=== PATIENT | male | born 1955 ===

== ENCOUNTER → 2022-11-10 10:59 | Outpatient (BNVA) | payer MEDICARE, MEDICAID, SELFPAY | PROVIDERS: PCP Family Medicine Adult Medicine; Visit Provider Family Medicine Adult Medicine | DX: Z00.00 Encounter for general adult medical examination without abnormal findings (principal); H40.9 Unspecified glaucoma; Z86.79 Personal history of other diseases of the circulatory system; E78.5 Hyperlipidemia, unspecified | CPT/HCPCS: 80053; 80061; 84443; 85025 ==

== ENCOUNTER → 2022-12-30 10:02 | Outpatient (BNVA) | payer MEDICARE, MEDICAID, SELFPAY | PROVIDERS: PCP Family Medicine Adult Medicine; Visit Provider Family Medicine Adult Medicine | DX: R73.01 Impaired fasting glucose (principal); M25.569 Pain in unspecified knee; G89.29 Other chronic pain; M54.16 Radiculopathy, lumbar region; F44.89 Other dissociative and conversion disorders; R41.3 Other amnesia; H40.9 Unspecified glaucoma; E78.5 Hyperlipidemia, unspecified | CPT/HCPCS: 83036 ==

== ENCOUNTER → 2023-03-24 07:38 | Outpatient (BNVA) | payer MEDICARE, MEDICAID, SELFPAY | PROVIDERS: PCP Family Medicine Adult Medicine; Visit Provider Psychiatry & Neurology Neurology | DX: R41.3 Other amnesia (principal); E11.9 Type 2 diabetes mellitus without complications; Z79.84 Long term (current) use of oral hypoglycemic drugs; E78.5 Hyperlipidemia, unspecified; D69.6 Thrombocytopenia, unspecified; D70.9 Neutropenia, unspecified | CPT/HCPCS: 36415; 82306; 82607; 82746; 83735; 83921; 85025; 86140; 86160; 86162; 86235; 86255; 86376; 86431; 86780; 99204 ==

== ENCOUNTER 2023-04-13 13:07 | Outpatient (CLI) | payer MEDICARE, MEDICAID, SELFPAY ==
--- NOTE | 2023-04-13 13:15 | USCV_ITS ---
Nathan Simon Age: 67 Gender: M : 1955 Exam Date: 04/13/2023 15:20 Ordering Phys: Sergio Lofton MD Technologist: Cele Fofana [place] [facility] [place]: type II diabetes, Risk Factors: None Previous Vascular Surgery: None Right Brachial BP: / Left Brachial BP: / Right Left Velocity (cm/s) Spectral Plaque Velocity (cm/s) Spectral Plaque Syst/Diast Broadening Syst/Diast Broadening 66.20/ 11.60 Prox CCA 88.60 / 21.00 53.80/ 13.70 None Mid CCA 55.20 / 14.80 36.80/ 10.50 None Distal CCA 62.55 / 19.40 41.40/ 15.00 Prox ICA 50.60 / 18.40 50.00/ 18.40 Mid ICA 61.10 / 23.70 46.50/ 16.30 Distal ICA 78.60 / 24.80 71.60 ECA 77.70 0.75 ICA/CCA 0.89 Antegrade Vertebral 50.00/ 15.80 cm/s 61.50/ 13.70 cm/s Tri Subclavian Tri 62.90 129.5 0 FINDINGS No obvious plaque in carotids. CONCLUSIONS Right ICA stenosis <50%. Left ICA stenosis <50%. Intimal thickening in the common carotid arteries and internal carotid arteries bilaterally. Normal antegrade Doppler flow noted in the right vertebral artery. Normal antegrade Doppler flow noted in the left vertebral artery. Luis Alberto Corrigan MD (Electronically Signed) Final Date: 13 April 2023 16:41 S
--- NOTE | 2023-04-13 13:45 | USCV_ITS ---
Nathan Simon Age: 67 Gender: M : 1955 Exam Date: 04/13/2023 14:51 Ordering Phys: Sergio Lofton MD Technologist: Cele Fofana [place] [facility] [place]: type II diabetes BP: / HR: 74 Rhythm: Sinus Technical Quality: Good MEASUREMENTS (Male / Female) Normal Values 2D ECHO LV Diastolic Diameter PLAX 3.6 cm 4.2 - 5.9 / 3.9 - 5.3 cm LV Systolic Diameter PLAX 2.0 cm IVS Diastolic Thickness 1.6 cm 0.6 - 1.0 / 0.6 - 0.9 cm IVS Systolic Thickness 1.7 cm LVPW Diastolic Thickness 0.5 cm 0.6 - 1.0 / 0.6 - 0.9 cm LVPW Systolic Thickness 1.7 cm LVOT Diameter 2.0 cm LV Ejection Fraction 2D Teich 75.7 % LV Ejection Fraction MOD 2C 57.3 % LV Ejection Fraction 2C AL 57.7 % LA Diameter 2.9 cm LA Width 2.7 cm LA Height 4.0 cm RA Width 3.3 cm RA Height 3.8 cm Aorta at Sinotubular Diameter 2.5 cm IVC Diameter 1.6 cm M-MODE Aortic Annulus Diameter 2.5 cm LA Ao Ratio MM 1.3 MV E Point Septal Separation 0.5 cm DOPPLER AV Peak Velocity 109.0 cm/s LVOT Peak Velocity 114.0 cm/s AV Area Cont Eq vti 3.1 cm squared AV Area Cont Eq pk 3.3 cm squared MV Peak Velocity 87.0 cm/s MV Area PHT 2.9 cm squared Mitral E to A Ratio 0.8 MV E' Velocity 37.5 cm/s Mitral E to MV E' Ratio 9.7 Mitral E to LV E' Lateral Ratio 8.2 Mitral E to LV E' Septal Ratio 12.0 TR Peak Velocity 67.7 cm/s TR Peak Gradient 1.8 mmHg Right Atrial Pressure 5.0 mmHg Pulmonary Artery Systolic Pressu 6.8 mmHg PV Peak Velocity 98.0 cm/s RV Acceleration Time 0.1 s RV Ejection Time 0.3 s RV AcT/ET 0.3 FINDINGS Left Ventricle Normal left ventricular size and systolic function, EF 65 %. No regional wall motion abnormalities. Grade I/IV diastolic dysfunction (abnormal relaxation filling pattern), normal to mildly elevated filling pressures. Right Ventricle The right ventricle is normal in size and function. Right Atrium The right atrium is normal in size. Left Atrium Mildly increased left atrial size. Mitral Valve Trace to mild mitral valve regurgitation. Aortic Valve Thickened aortic valve. Tricuspid Valve Trace tricuspid valve regurgitation. Pulmonic Valve No gross abnormalities noted Pericardium Normal pericardium without effusion. Aorta Normal ascending aorta dimension. IVC The inferior vena cava appears normal. CONCLUSIONS Normal left ventricular size and systolic function, EF 65 %. No regional wall motion abnormalities. Grade I/IV diastolic dysfunction (abnormal relaxation filling pattern), normal to mildly elevated filling pressures. Mildly increased left atrial size. Trace to mild mitral valve regurgitation. Thickened aortic valve. Trace tricuspid valve regurgitation. Estimated PA pressure probably within normal limits There is no pericardial effusion. There are no intracardiac masses. No similar previous studies are available for comparison Dr Chencho Asencio MD FACC (Electronically Signed) Final Date: 14 April 2023 21:41 S
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
== END 2023-04-13 13:08 | disposition home or self-care (01) ==
PROVIDERS: PCP Family Medicine Adult Medicine; Visit Provider Psychiatry & Neurology Neurology
DX: E11.9 Type 2 diabetes mellitus without complications (principal); R41.3 Other amnesia; I51.89 Other ill-defined heart diseases; I35.8 Other nonrheumatic aortic valve disorders; I65.23 Occlusion and stenosis of bilateral carotid arteries; D64.9 Anemia, unspecified; Z18.89 Other specified retained foreign body fragments
CPT/HCPCS: 70553; 72040; 93306; 93880

== ENCOUNTER 2023-04-20 14:54 | Oncology outpatient (recurring) (ONCR) | payer MEDICARE, MEDICAID, SELFPAY | END 2023-04-26 23:59 | disposition home or self-care (01) | PROVIDERS: PCP Family Medicine Adult Medicine; Visit Provider Internal Medicine Medical Oncology | DX: D70.9 Neutropenia, unspecified (principal); D69.6 Thrombocytopenia, unspecified | CPT/HCPCS: 99203 ==

== ENCOUNTER 2023-04-23 14:51 | Outpatient (CLI) | payer MEDICARE, MEDICAID, SELFPAY ==
--- NOTE | 2023-04-23 15:00 | CT_ITS ---
WS: [id number] CT HEAD TECHNIQUE: Noncontrast CT of the head obtained from the skullbase to the vertex. CLINICAL INFORMATION: R41.3 - Other amnesia COMPARISON: None. DLP: 1008.[address] scans at [facility] use at least one of these dose optimization techniques: automated e xposure control; mA and/or kV adjustment per patient size (includes targeted exams where dose is matc hed to clinical indication); or iterative reconstruction. FINDINGS: No evidence of intracranial hemorrhage or mass effect. Ventricular system and basal cisterns are luevano nt. Moderate small vessel changes with moderate parenchymal volume loss. Tiny chronic lacunar infarct s LEFT lateral thalamus and basal ganglia. Chronic infarct with encephalomalacia involving the RIGHT parasagittal parietal and occipital lobes.No extra-axial fluid collections. No evidence of mass or ma ss effect. Cavernous carotid calcification. Paranasal sinuses and mastoid air cells are well aerated. .Normal visualized soft tissues. CT/CT head wo con* [id number] IMPRESSION: 1. No evidence of intracranial hemorrhage or mass effect. 2. Moderate small vessel changes with moderate parenchymal volume loss. 3. Tiny chronic lacunar infarcts LEFT lateral thalamus and basal ganglia. 4. Chronic infarct with encephalomalacia involving the RIGHT parasagittal melissa etal and occipital lobes 5. No acute intracranial findings.
== END 2023-04-23 14:52 | disposition home or self-care (01) ==
LOC: RAD 14:51
PROVIDERS: PCP Family Medicine Adult Medicine; Visit Provider Psychiatry & Neurology Neurology
DX: R41.3 Other amnesia (principal); I69.398 Other sequelae of cerebral infarction; G93.89 Other specified disorders of brain
CPT/HCPCS: 70450

== ENCOUNTER → 2023-05-07 14:49 | Outpatient (BNVA) | payer MEDICARE, MEDICAID, SELFPAY | PROVIDERS: PCP Family Medicine Adult Medicine; Visit Provider Family Medicine Adult Medicine | DX: R73.01 Impaired fasting glucose (principal); E11.9 Type 2 diabetes mellitus without complications; Z86.79 Personal history of other diseases of the circulatory system; I10 Essential (primary) hypertension; E78.5 Hyperlipidemia, unspecified; E55.9 Vitamin D deficiency, unspecified; D69.6 Thrombocytopenia, unspecified; D70.9 Neutropenia, unspecified; R41.3 Other amnesia | CPT/HCPCS: 83036 ==

== ENCOUNTER 2023-06-01 13:33 | Oncology outpatient (recurring) (ONCR) | payer MEDICARE, MEDICAID, SELFPAY ==
[2023-06-01 13:39] VITALS: BP 129/78; PULSE 79; RESP 16; TEMP 36.2; O2SAT 98
[2023-06-01 13:52] LABS: Basophils % 0.3 %; Eosinophils # 0.1 10^3/uL (0.0-0.8); Eosinophils % 3.3 %; Hematocrit 37.3 % (37-53); Lymphocytes % 33.1 %; Mean Corpuscular HGB Conc 34.3 g/dL (30-55); Mean Corpuscular Hemoglobin 29.2 pg (27-33); Mean Platelet Volume 11.5 fL (7.4-10.4); Monocytes # 0.3 10^3/uL (0.2-0.9); Monocytes % 9.3 %; Neutrophils # 1.63 10^3/uL (1.8-7.7); Nucleated Red Blood Cells % 0 %; Platelet Count 148 10^3/cmm (157-399); Red Blood Count 4.39 10^6/uL (3.85-5.65); Red Cell Distribution Width 13.7 % (12.1-15.1); White Blood Count 3.02 10^3/uL (3.29-11.43)
== END 2023-06-26 23:59 | disposition home or self-care (01) ==
PROVIDERS: Internal Medicine Medical Oncology; PCP Family Medicine Adult Medicine; Visit Provider Internal Medicine Medical Oncology
DX: D69.6 Thrombocytopenia, unspecified (principal); D70.9 Neutropenia, unspecified; Z79.899 Other long term (current) drug therapy
CPT/HCPCS: 36415; 85025; 99213

== ENCOUNTER → 2023-06-22 14:34 | Outpatient (BNVA) | payer MEDICARE, MEDICAID, SELFPAY | PROVIDERS: PCP Family Medicine Adult Medicine; Visit Provider Psychiatry & Neurology Neurology | DX: R41.3 Other amnesia (principal) | CPT/HCPCS: 99212 ==

== ENCOUNTER 2023-09-08 14:36 | Oncology outpatient (recurring) (ONCR) | payer MEDICARE, MEDICAID, SELFPAY ==
[2023-09-08 16:04] LABS: Basophils % 0.3 %; Eosinophils # 0.1 10^3/uL (0.0-0.8); Eosinophils % 2.4 %; Hematocrit 36.3 % (37-53); Lymphocytes % 33.2 %; Mean Corpuscular HGB Conc 34.4 g/dL (30-55); Mean Corpuscular Hemoglobin 29.8 pg (27-33); Mean Corpuscular Volume 86.4 fl (82-101); Mean Platelet Volume 11.4 fL (7.4-10.4); Monocytes # 0.3 10^3/uL (0.2-0.9); Monocytes % 9.7 %; Neutrophils # 1.54 10^3/uL (1.8-7.7); Neutrophils % 53.4 %; Nucleated Red Blood Cells % 0 %; Platelet Count 128 10^3/cmm (157-399); Red Cell Distribution Width 14.1 % (12.1-15.1); White Blood Count 2.89 10^3/uL (3.29-11.43)
[2023-09-08 16:30] LABS: Alanine Aminotransferase 13 U/L (0-41); Albumin Level 4.7 g/dL (3.5-5.2); Alkaline Phosphatase 41 U/L (40-130); Anion Gap 13.7 (5-19); Aspartate Amino Transferase 11 U/L (0-40); Blood Urea Nitrogen 15 mg/dL (8-23); Calcium 9.4 mg/dL (8.5-10.5); Carbon Dioxide 26 mmol/L (22-29); Chloride 103 mmol/L (98-107); Globulin 2.4 g/dL (1.3-4.6); Glomerular Filtration Rate 96.4 mL/min (90-130); Glucose 264 mg/dL (65-115); Lactate Dehydrogenase 103 U/L (135-225); Osmolality Calculated 296 mOsm/kg (285-295); Potassium 4.7 mmol/L (3.5-5.1); Sodium 138 mmol/L (136-145); Total Bilirubin 0.4 mg/dL (0.15-1.2); Total Protein 7.1 g/dL (6.6-8.7)
[2023-09-08 16:45] LABS: Vitamin B12 261 pg/mL (232-1245)
[2023-09-08 16:53] LABS: Hepatitis A Antibody IgM Non-Reactive (Nonreactive); Hepatitis B Core AB, Total Reactive (Nonreactive); Hepatitis B Surface Antigen Non-Reactive (Nonreactive); Hepatitis C Virus Antibody Non-Reactive (Nonreactive)
[2023-09-08 16:56] LABS: Folate Level 19.9 ng/mL (4.5-32.2)
[2023-09-08 17:58] LABS: LAB Peripheral Smear Sent for Review
[2023-09-11 12:55] LABS: Methylmalonic Acid 108 nmol/L (87-318)
[2023-09-12 19:30] LABS: Copper Level 92 mcg/dL (70-175)
== END 2023-09-26 23:59 | disposition home or self-care (01) ==
PROVIDERS: Internal Medicine; PCP Family Medicine Adult Medicine; Visit Provider Internal Medicine Medical Oncology
DX: D69.6 Thrombocytopenia, unspecified (principal); D70.9 Neutropenia, unspecified; Z79.899 Other long term (current) drug therapy
CPT/HCPCS: 36415; 80053; 80503; 82525; 82607; 82746; 83615; 83921; 85025; 85045; 86705; 86706; 86709; 86803; 87340; 99214

== ENCOUNTER 2024-02-15 13:27 | Emergency (ER) | payer MEDICARE, MEDICAID, SELFPAY ==
[2024-02-15 13:36] VITALS: BP 146/70; PULSE 80; RESP 16; TEMP 36.6; O2SAT 100
--- NOTE | 2024-02-15 15:10 | W.ED.BACK ---
HPI - Back Pain/Injury General: Chief Complaint: Back Pain/Injury Stated Complaint: Right side pain Time Seen by Provider: 02/15/24 14:49 Source: patient Mode of arrival: ambulatory Limitations: no limitations History of Present Illness: Patient presents emergency department today for evaluation treatment of right-sided mid buttock pain radiating down the right lateral thigh to his knee. He states he has had this pain now for about 4 days and denies any known injury prior to onset. Patient states he woke from sleep 4 days ago with this pain and it has not gone away. It is worse when he puts direct pressure on his buttock-like while sitting. He is sitting on his left buttock alleviating direct pressure on the right buttock. He states he has had this happen once before. He denies any other back issues. He has not taken any medication for his pain prior to arrival. He is still ambulatory and weightbearing on the extremity and denies any bowel or bladder dysfunction. Review of Systems General: Reports: 10 or more systems reviewed and unremarkable except in HPI and below PFSH ED PFSH: Medical History Hepatitis B antibody positive in blood Neutropenia Psoriasis/like disorders Hypertension Vitamin D deficiency Diabetes mellitus type 2 in nonobese Memory loss of unknown cause Lumbar back pain with radiculopathy affecting right lower extremity Chronic knee pain Glaucoma Well adult health check Hyperlipidemia Surgical History No pertinent past surgical history Family History Father No problems noted. Mother No problems noted. Social History Smoking and tobacco/nicotine status: former use of tobacco/nicotine Quit status (tobacco/nicotine): has quit using Year quit tobacco: 2019 Former quit date comment: chewing tobacco - 30+ years Second hand smoke exposure: No Alcohol intake: former Substance/Drug Use: never Physical Exam Const: COMMON NORMALS: no acute distress, patient oriented x3 and alert HENMT: COMMON NORMALS: normocephalic, atraumatic and hearing grossly normal bilaterally HEAD & SCALP: normocephalic and atraumatic Eye: COMMON NORMALS: Equal, round and reactive pupils present, EOMs intact bilaterally and conjunctivae normal CONJUNCTIVA: Yes conjunctivae normal PUPIL: Yes Equal, round and reactive pupils present Neck/C-Spine: COMMON NORMALS: full ROM and no JVD Lymph: LYMPHATIC: no lymphadenopathy noted Resp: COMMON NORMALS: normal respiratory effort, No retractions and No use of accessory muscles Cardio: COMMON NORMALS: no JVD and regular rate RATE: regular rate Back/Pelvis: COMMON NORMALS: thoracic and lumbar spine normal to inspection and thoraco-lumbar ROM normal Extremity: NARRATIVE EXTREMITY EXAM: Full ROM to the RLE with weightbearing and ambulation observed. Tender to palpation of the right mid buttock region. Neuro: COMMON NORMALS: patient oriented x3 SENSORIUM/ORIENTATION: Yes alert Psych: COMMON NORMALS: mental status grossly normal, Normal thought process present, cooperative and normal affect THOUGHT PROCESS: Normal thought process present Skin: COMMON NORMALS: no rashes or lesions noted and turgor normal GENERAL SKIN EXAM: no rashes or lesions noted and turgor normal Course Vital Signs: Vital signs: Vital Signs Temperature 97.9 F 02/15/24 13:36 Pulse Rate 83 02/15/24 15:19 Respiratory Rate 14 02/15/24 15:19 Blood Pressure 139/71 02/15/24 15:19 Pulse Oximetry 99 02/15/24 15:19 Oxygen Delivery Me thod Room Air 02/15/24 13:36 MDM - Back Pain/Injury Medical Decision Making Patients chart shows a previous diagnosis of lumbar radiculopathy and right sided sciatica. patient denies injury or trauma and location of pain does correlate with sciatic nerve distribution. Would not think imaging would change treatment plan today. 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 Explained that we will treat for several days more with medications sent to the pharmacy. Also gave some at home recommendations. Strict return precautions given for bowel/bladder dysfunction or saddle parenthesia. Differential Diagnosis Likely lumbar radiculopathy and sciatica; Unlikely strain of lumbar region, pyelonephritis, thoracic back pain or discitis No radiology studies performed this visit Discharge Plan Discharge Patient Disposition: Home Clinical Impression: Sciatica Qualifiers: Laterality: right Qualified Code(s): M54.31 - Sciatica, right side Condition: Stable Prescriptions: New methylprednisolone 4 mg tablets,dose pack See Rx Instructions PO .COMPLEX Qty: 21 0RF Rx Instructions: orally per package directions naproxen 500 mg tablet 500 mg PO BID PRN (Reason: pain) Qty: 20 0RF methocarbamol 500 mg tablet 500 mg PO TID Qty: 15 0RF No Action (DME) blood-glucose meter Misc See Rx Instructions .Route Qty: 1 0RF Rx Instructions: glucometer with strips (DME) Accu-Chek Corie Plus test strp Strip See Rx Instructions .Route Qty: 100 3RF Rx Instructions: Check blood sugar 3 times a week. Wednesday, Wednesday, and Wednesday metformin 500 mg tablet extended release 24 hr 500 mg PO DAILY Qty: 90 1RF triamcinolone acetonide 0.025 % cream 1 applic topical DAILY Qty: 454 1RF (DME) blood pressure test kit-medium Kit See Rx Instructions .Route Qty: 1 0RF Rx Instructions: As directed prednisone 20 mg tablet 40 mg PO DAILY Qty: 10 0RF (DME) lancets Misc See Rx Instructions .Route Qty: 100 3RF Rx Instructions: Check your blood sugar 3 times a week. Wednesday, Wednesday, and Wednesday. (DME) 3 or 4 prong cane small to medium See Rx Instructions .Route .MEDSUPPLY Qty: 1 0RF Rx Instructions: As directed cholecalciferol (vitamin D3) 625 mcg (25,000 unit) capsule 50,000 unit PO .weekly Qty: 14 2RF Discharge Orders: Discharge ED (Routine); Ordered 02/15/24 Ordered By: Abbi Nguyen Referrals: Hernando Sarabia MD [Primary Care Provider] - Discharge Diet: Usual diet Discharge Activity: Increase activity as tolerated Patient Instructions: Sciatica (ED) Activity Restrictions/Additional Instructions: Based on the description and location of your pain I do believe you are dealing with a right-sided sciatica. This is a very significant nerve pain which can cause worsening pain while standing or sitting. IM providing you some medication which will help with this pain. Do not take any Aleve, Advil, Motrin, or ibuprofen while taking naproxen as these are all similar medications and can cause upset stomach. Be careful while taking the methocarbamol as it can make you feel drowsy or sedated. Do not drive while taking this medication. Do not drink alcohol while taking this medication. Avoid any strenuous activity or heavy lifting during this time. Recheck with your primary care doctor at the beginning of next week for recheck of your symptoms. If you have any difficulty controlling your bowels or bladder you need to return back to the ER. Coding Level of Care Code ED Breaker Hand for Mario Salazar
[2024-02-15] MEDS: orphenadrine 30 mg/mL Inj 2 mL 60 MG IM (15:14)
[2024-02-15] MEDS: predniSONE 20 mg Tablet 60 MG PO (15:14)
[2024-02-15] MEDS: ketorolac 60 mg/2 mL INJ IM (15:14)
[2024-02-15 15:19] VITALS: BP 139/71; PULSE 83; RESP 14; O2SAT 99
== END 2024-02-15 15:25 | disposition home or self-care (01) ==
PROVIDERS: Emergency Provider Physician Assistant; PCP Family Medicine Adult Medicine
DX: M54.31 Sciatica, right side (principal); Z87.891 Personal history of nicotine dependence
CPT/HCPCS: 96372; 99284; J1885; J2360; J7512

== ENCOUNTER 2024-02-23 13:54 | Outpatient (CLI) | payer MEDICARE, MEDICAID, SELFPAY ==
--- NOTE | 2024-02-23 14:01 | XR_ITS ---
WS: [id number] Exam: XR lumbar spine min 4V [id number] Date/Time of Exam: 02/23/2024 2:01 PM Reason For Exam: low back with RT sciatica No acute fracture or dislocation. Slight spondylosis. Disc spaces are preserved. Posterior elements a re intact. Mild degenerative change at the facet joints at L4-5 and L5-S1. XR/XR lumbar spine min 4V [id number] IMPRESSION: 1. Minimal degenerative changes. No fracture or malalignment.
== END 2024-02-23 13:55 | disposition home or self-care (01) ==
LOC: RAD 13:55
PROVIDERS: PCP Family Medicine Adult Medicine; Visit Provider Family Medicine Adult Medicine
DX: M54.16 Radiculopathy, lumbar region (principal); M47.817 Spondylosis without myelopathy or radiculopathy, lumbosacral region
CPT/HCPCS: 72110

== ENCOUNTER → 2024-03-02 13:50 | Outpatient (BNVA) | payer MEDICARE, MEDICAID, SELFPAY | PROVIDERS: PCP Family Medicine Adult Medicine; Visit Provider Orthopaedic Surgery | DX: M54.16 Radiculopathy, lumbar region (principal); M54.9 Dorsalgia, unspecified | CPT/HCPCS: 72110; 99204 ==

== ENCOUNTER 2024-04-03 09:06 | Outpatient (RCR) | payer MEDICARE, MEDICAID, SELFPAY | END 2024-04-26 23:59 | disposition home or self-care (01) | LOC: SPT 09:06 | PROVIDERS: PCP Family Medicine Adult Medicine; Visit Provider Orthopaedic Surgery | DX: M54.9 Dorsalgia, unspecified (principal); G89.29 Other chronic pain | CPT/HCPCS: 97032; 97110; 97161; 97530 ==

== ENCOUNTER 2024-04-14 11:17 | Emergency (ER) | payer MEDICARE, MEDICAID, SELFPAY ==
[2024-04-14 11:28] VITALS: BP 142/77; PULSE 66; RESP 18; TEMP 36.8; O2SAT 98; BMI 21.9
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
[2024-04-14] MEDS: naproxen 500 mg Tablet 250 MG PO (12:05)
[2024-04-14] MEDS: diazePAM 5 mg Tablet PO (12:05)
[2024-04-14] MEDS: predniSONE 20 mg Tablet 40 MG PO (12:05)
== END 2024-04-14 13:51 | disposition home or self-care (01) ==
PROVIDERS: Emergency Provider Emergency Medicine; PCP Family Medicine Adult Medicine
DX: M51.16 Intervertebral disc disorders with radiculopathy, lumbar region (principal); Z79.84 Long term (current) use of oral hypoglycemic drugs; Z87.891 Personal history of nicotine dependence; I10 Essential (primary) hypertension; E11.9 Type 2 diabetes mellitus without complications; E78.5 Hyperlipidemia, unspecified
CPT/HCPCS: 99283; J7512

== ENCOUNTER → 2024-04-25 15:21 | Outpatient (BNVA) | payer MEDICARE, MEDICAID, SELFPAY | PROVIDERS: PCP Family Medicine Adult Medicine; Visit Provider Orthopaedic Surgery | DX: M48.062 Spinal stenosis, lumbar region with neurogenic claudication (principal); E11.9 Type 2 diabetes mellitus without complications | CPT/HCPCS: 36415; 80053; 81003; 81015; 83036; 85025; 99214 ==

== ENCOUNTER 2024-09-04 09:25 | Emergency (ER) | payer MEDICARE, MEDICAID, SELFPAY ==
[2024-09-04 09:30] VITALS: BMI 22.1
[2024-09-04 09:45] VITALS: BP 143/77; O2SAT 99
--- NOTE | 2024-09-04 09:46 | CT_ITS ---
WS: [id number] CT ABDOMEN AND PELVIS WITH CONTRAST HISTORY: abdominal pain, vomiting TECHNIQUE: Imaging performed of the abdomen and pelvis with IV contrast. Single phase imaging of the abdomen. Coronal and sagittal reformats are submitted. All CT scans at [facility] use at [address] one of these dose optimization techniques: automated exposure control; mA and/or kV adjustment per patient size (includes targeted exams where dose is matched to clinical indication); or iterative re construction. IV CONTRAST: Omnipaque 350; 100 mL IV. Oral contrast: No DLP: 367.56 mGy.cm COMPARISON: None available. Lower thorax: Mild dependent changes at the lung bases. Heart is normal size. Small hiatal hernia. Liver/biliary system: Normal size with no intrahepatic dilatation. Gallbladder: Normal. No gallstones or wall thickening. No pericholecystic fluid. Pancreas: Normal size pancreas and pancreatic duct. No adjacent inflammation. Spleen: Normal size spleen. No mass or infarct. Adrenal glands: Normal. Right kidney: Normal size kidney. No obstruction. Too small to characterize hypodensity in the mid to lower kidney. Left kidney: Normal. Aorta: Normal. Lymphadenopathy: None. Free fluid: None. GI tract: Normally distended stomach. No enteritis. Moderate constipation. The appendix is not defini tely identified. There are no inflammatory changes in the RIGHT lower quadrant. No submucosal edema. Abdominal wall: Unremarkable abdominal wall. No hernia. Pelvis: No free fluid or adenopathy within the pelvis. Mild prostate gland heterogeneity. Bones: Unremarkable. CT/CT abdomen pelvis w con* [id number] IMPRESSION: 1. The appendix is not definitely identified. There is no inflammation in the RIGHT lower quadrant to suggest an acute appendicitis. 2. There are a few small bowel loops which are minimally dilated distally. Thi s may be related to a very mild enteritis. No colitis. 3. No renal obstruction.
--- NOTE | 2024-09-04 09:46 | W.ED.ABDPA2 ---
HPI - Abdominal Pain General: Chief Complaint: Abdominal Pain Stated Complaint: abd pain Time Seen by Provider: 09/04/24 09:31 Source: patient Mode of arrival: EMS Limitations: no limitations History of Present Illness: Patient is a 68-year-old male who presents to ED today with a complaint of abdominal pain as well as nausea and vomiting. He states abdominal pain began around 5 AM this morning. He has had approximately 2-3 episodes of nonbloody emesis. He has not noticed any changes in his bowel movements. He has not had fevers. Patient states he is never had previous similar symptoms. Denies previous abdominal surgeries. When asked to point where he hurts, he rubs his hand over his entire abdomen. MD elicited complaint: abdominal pain Pertinent past history: none Onset (ago): hour(s) Pain Consistency: constant Location: Diffuse Severity: severe Radiation: none Migration to: no migration Exacerbating factors: nothing Relieving factors: nothing Associated Symptoms: Reports nausea and vomiting; Denies chills, constipation, diarrhea, dysuria, fever(s) and hematemesis Related Data Home Medications Medication Instructions Recorded Confirmed aspirin 325 mg tablet (Nataliya 650 mg PO BID 09/04/24 09/04/24 Aspirin) Previous Rx's Medication Instructions Recorded lancets #100 ea 01/01/23 3 or 4 prong cane #1 ea 02/26/23 cholecalciferol (vitamin D3) 625 50,000 unit PO .weekly #14 caps 03/25/23 mcg (25,000 unit) capsule blood sugar diagnostic (Accu-Chek #100 ea 08/06/23 Corie Plus test strips) blood-glucose meter #1 ea 08/06/23 blood pressure test kit-medium #1 ea 01/19/24 ondansetron 4 mg disintegrating 4 mg PO Q8H PRN nausea and 09/04/24 tablet vomiting #14 tabs Allergies Allergy/AdvReac Type Severity Reaction Status Date / Time No Known Allergies Allergy Verified 08/09/24 13:40 Review of Systems Const: Denies: fever(s), chills, body aches, fatigue or malaise Card: Denies: chest pain Resp: Denies: dyspnea GI: Reports: abdominal pain, nausea and vomiting; Denies: hematemesis, diarrhea or constipation : Denies: flank pain, difficulty urinating, dysuria, urinary frequency, urinary urgency or urinary hesitancy Musc: Denies: neck pain, back pain, extremity pain, extremity swelling, joint pain or joint swelling Skin/Breast: Denies: rash Neuro: Denies: headache(s), numbness in extremities, weakness in extremities, sensory changes or dizziness PFSH ED PFSH: Medical History Hepatitis B antibody positive in blood Neutropenia Psoriasis/like disorders Hypertension Vitamin D deficiency Diabetes mellitus type 2 in nonobese Memory loss of unknown cause Lumbar back pain with radiculopathy affecting right lower extremity Chronic knee pain Glaucoma Well adult health check Hyperlipidemia Surgical History No pertinent past surgical history Family History Father No problems noted. Mother No problems noted. Social History Smoking and tobacco/nicotine status: never used tobacco/nicotine Quit status (tobacco/nicotine): has quit using Year quit tobacco: 2019 Former quit date comment: chewing tobacco - 30+ years Second hand smoke exposure: No Alcohol intake: former Substance/Drug Use: never Physical Exam Const: COMMON NORMALS: average body habitus, patient oriented x3, no limitations, healthy appearing, alert and well nourished GENERAL APPEARANCE: cooperative and in distress (appears uncomfortable) HENMT: COMMON NORMALS: normocephalic and atraumatic HEAD & SCALP: normal to inspection, normocephalic and atraumatic FACE & SINUS: normal facial exam Eye: COMMON NORMALS: no scleral icterus Resp: COMMON NORMALS: normal respiratory effort and clear to auscultation bilaterally AUSCULTATION: clear to auscultation bilaterally Cardio: COMMON NORMALS: regular rate and regular rhythm RATE: regular rate RHYTHM: regular rhythm GI: COMMON NORMALS: Normal to inspection, nondistended, normoactive bowel sounds present, Soft to palpation, No hepatosplenomegaly present and no masses INSPECTION: Yes normal to inspection AUSCULTATION: Yes normoactive bowel sounds PALPATION: Yes Soft to palpation, Yes Tenderness to palpation present (GI) (diffusely), No Guarding due to palpation present (GI), No Rigid due to palpation and Yes No hepatosplenomegaly present : COMMON NORMALS: Yes no CVA tenderness BLADDER/KIDNEY EXAM: Yes no CVA tenderness Back/Pelvis: COMMON NORMALS: no CVA tenderness and thoracic and lumbar spine normal to inspection Extremity: GENERAL: Yes normal exam except as noted Neuro: JENI COMA SCALE: document GCS findings [place] coma scale eye opening: Spontaneous [place] coma scale verbal response: Orientated Jeni coma scale motor response: Obey commands [place] coma scale total score: 15 COMMON NORMALS: patient oriented x3, moves all extremities, no focal motor deficits and no sensory deficits noted SENSORIUM/ORIENTATION: Yes alert Skin: COMMON NORMALS: no rashes or lesions noted GENERAL SKIN EXAM: no rashes or lesions noted Course Vital Signs: Vital signs: Vital Signs Pulse Rate 84 09/04/24 10:10 Blood Pressure 145/72 09/04/24 10:10 Pulse Oximetry 96 09/04/24 10:10 Oxygen Delivery Me thod Room Air 09/04/24 10:10 MDM - Abdominal Pain Medical Decision Making Patient is a 68-year-old male here for abdominal pain, nausea, and vomiting starting around 5 AM this morning. He has not had any vomiting while here. Vital signs have been stable throughout his stay. Blood work showing a normal white count. He has chronic thrombocytopenia. Elevated glucose. He is a known diabetic. Serum ketones are negative. He has a normal gap and normal bicarb. UA is unremarkable. The CT scan showing no emergent or life-threatening etiology. He feels better after medications given here. Will have case management set him up with a primary care provider for further evaluation of his symptoms. Will place him on an antiemetic at home and recommend bland liquid diet. Return to ED precautions given. Medical Records I reviewed the patient's medical records. Lab Data I reviewed the patient's lab results. 09/04/24 10:00 09/04/24 10:00 Labs/Radiology: Radiology Impressions Abdomen/Pelvis CT 09/04/24 09:46 IMPRESSION: 1. The appendix is not definitely identified. There is no inflammation in the RIGHT lower quadrant to suggest an acute appendicitis. 2. There are a few small bowel loops which are minimally dilated distally. This may be related to a very mild enteritis. No colitis. 3. No renal obstruction. Laboratory Results WBC 5.35 10^3/uL (3.29-11.43) 12/09/24 10:00 RBC 4.65 10^6/uL (3.85-5.65) 09/04/24 10:00 Hgb 13.30 g/dL (11.27-16.99) 09/04/24 10:00 Hct 37.7 % (37-53) 09/04/24 10:00 MCV 81.1 fl (82-101) L 09/04/24 10:00 MCH 28.6 pg (27-33) 09/04/24 10:00 MCHC 35.3 g/dL (30-55) 09/04/24 10:00 RDW 13.5 % (12.1-15.1) 09/04/24 10:00 Plt Count 119 10^3/cmm (157-399) L 09/04/24 10:00 MPV 11.8 fL (7.4-10.4) H 09/04/24 10:00 Neut % (Auto) 80.7 % 09/04/24 10:00 Lymph % (Auto) 10.7 % 09/04/24 10:00 [place] % (Auto) 7.1 % 09/04/24 10:00 Eos % (Auto) 1.1 % 09/04/24 10:00 Baso % (Auto) 0.2 % 09/04/24 10:00 Neut # (Auto) 4.32 10^3/uL (1.8-7.7) 09/04/24 10:00 Lymph # (Auto) 0.6 10^3/uL (0.8-4.8) L 09/04/24 10:00 [place] # (Auto) 0.4 10^3/uL (0.2-0.9) 09/04/24 10:00 Eos # (Auto) 0.1 10^3/uL (0.0-0.8) 09/04/24 10:00 Baso # (Auto) 0.0 10^3/uL (0.0-0.1) 09/04/24 10:00 Nucleated RBC % (auto) 0 % 09/04/24 10:00 Nucleated RBCs # 0.0 /100WBC 09/04/24 10:00 Sodium 133 mmol/L (136-145) L 09/04/24 10:00 Potassium 4.3 mmol/L (3.5-5.1) 09/04/24 10:00 Chloride 98 mmol/L (98-107) 09/04/24 10:00 Carbon Dioxide 22 mmol/L (22-29) 09/04/24 10:00 Anion Gap 17.3 (5-19) 09/04/24 10:00 BUN 17 mg/dL (8-23) 09/04/24 10:00 Creatinine 0.6 mg/dL (0.7-1.2) L 09/04/24 10:00 GFR Calculation 134.0 mL/min (90-130) H 09/04/24 10:00 Glucose 286 mg/dL (65-115) H 09/04/24 10:00 Calculated Osmolality 288 mOsm/kg (285-295) 09/04/24 10:00 Calcium 9.0 mg/dL (8.5-10.5) 09/04/24 10:00 Total Bilirubin 0.5 mg/dL (0.15-1.2) 09/04/24 10:00 AST 16 U/L (0-40) 09/04/24 10:00 ALT 12 U/L (0-41) 09/04/24 10:00 Alkaline Phosphatase 46 U/L (40-130) 09/04/24 10:00 Total Protein 6.9 g/dL (6.6-8.7) 09/04/24 10:00 Albumin 4.5 g/dL (3.5-5.2) 09/04/24 10:00 Globulin 2.4 g/dL (1.3-4.6) 09/04/24 10:00 Lipase 16 U/L (13-60) 09/04/24 10:00 Urine Color Yellow (Yellow) 09/04/24 11:15 Urine Appearance Clear (CLEAR) 09/04/24 11:15 Urine pH 5.5 (5-7) 09/04/24 11:15 Ur Specific [place] 1.079 (1.005-1.030) H 09/04/24 11:15 Urine Protein Negative (Negative) 09/04/24 11:15 Urine Glucose (UA) 3+ (Normal) H 09/04/24 11:15 Urine Ketones Trace (Negative) 09/04/24 11:15 Urine Blood Negative (Negative) 09/04/24 11:15 Urine Nitrate Negative (Negative) 09/04/24 11:15 Urine Bilirubin Negative (Negative) 09/04/24 11:15 Urine Urobilinogen 1.0 mg/dL (Negative) 09/04/24 11:15 Ur Leukocyte Esterase Negative (Negative) 09/04/24 11:15 Amorphous Sediment Not Reportable 09/04/24 11:15 Serum Ketones Negative (Negative) 09/04/24 10:00 All radiology interpretation(s) finalized by discharge Discharge Plan Discharge Patient Disposition: Home Clinical Impression: Abdominal pain Qualifiers: Abdominal location: generalized Qualified Code(s): R10.84 - Generalized abdominal pain Condition: Stable Prescriptions: New ondansetron 4 mg tablet,disintegrating 4 mg PO Q8H PRN (Reason: nausea and vomiting) Qty: 14 0RF No Action (DME) blood-glucose meter Misc See Rx Instructions .Route Qty: 1 0RF Rx Instructions: glucometer with strips (DME) Accu-Chek Corie Plus test strp Strip See Rx Instructions .Route Qty: 100 3RF Rx Instructions: Check blood sugar 3 times a week. Wednesday, Wednesday, and Wednesday (DME) blood pressure test kit-medium Kit See Rx Instructions .Route Qty: 1 0RF Rx Instructions: As directed (DME) lancets Misc See Rx Instructions .Route Qty: 100 3RF Rx Instructions: Check your blood sugar 3 times a week. Wednesday, Wednesday, and Wednesday. (DME) 3 or 4 prong cane small to medium See Rx Instructions .Route .MEDSUPPLY Qty: 1 0RF Rx Instructions: As directed cholecalciferol (vitamin D3) 625 mcg (25,000 unit) capsule 50,000 unit PO .weekly Qty: 14 2RF aspirin [Nataliya Aspirin] 325 mg Tablet 650 mg PO BID Discharge Orders: Discharge ED (Routine); Ordered 09/04/24 Ordered By: Melita Baker Referrals: Hernando Sarabia MD [Primary Care Provider] - Patient Instructions: Abdominal Pain (ED) Activity Restrictions/Additional Instructions: As we discussed, your blood work and CT scan did not show any obvious etiology for your abdominal pain. I would like you to do a bland liquid diet and advance as tolerated. I will call you and nausea medications to your pharmacy on file. You need to return to the emergency department for worsening abdominal pain, repetitive episodes of vomiting or diarrhea, generally feeling worse or unwell, or any other concerns you may have. I hope you begin to feel better soon. Coding Level of Care Code ED Continuity Director for Mario Salazar
[2024-09-04] MEDS: morphine 4 mg/mL SDV 1 mL IVP (09:58)
[2024-09-04] MEDS: ondansetron 2 mg/ML SDV 2 mL 4 MG IVP (09:58)
[2024-09-04 10:10] VITALS: BP 145/72; PULSE 84; O2SAT 96
[2024-09-04 10:12] LABS: Basophils % 0.2 %; Eosinophils # 0.1 10^3/uL (0.0-0.8); Eosinophils % 1.1 %; Hematocrit 37.7 % (37-53); Lymphocytes # 0.6 10^3/uL (0.8-4.8); Lymphocytes % 10.7 %; Mean Corpuscular HGB Conc 35.3 g/dL (30-55); Mean Corpuscular Hemoglobin 28.6 pg (27-33); Mean Corpuscular Volume 81.1 fl (82-101); Mean Platelet Volume 11.8 fL (7.4-10.4); Monocytes # 0.4 10^3/uL (0.2-0.9); Monocytes % 7.1 %; Neutrophils # 4.32 10^3/uL (1.8-7.7); Neutrophils % 80.7 %; Nucleated Red Blood Cells % 0 %; Platelet Count 119 10^3/cmm (157-399); Red Blood Count 4.65 10^6/uL (3.85-5.65); Red Cell Distribution Width 13.5 % (12.1-15.1); White Blood Count 5.35 10^3/uL (3.29-11.43)
[2024-09-04 10:27] LABS: Alanine Aminotransferase 12 U/L (0-41); Albumin Level 4.5 g/dL (3.5-5.2); Alkaline Phosphatase 46 U/L (40-130); Anion Gap 17.3 (5-19); Aspartate Amino Transferase 16 U/L (0-40); Blood Urea Nitrogen 17 mg/dL (8-23); Carbon Dioxide 22 mmol/L (22-29); Chloride 98 mmol/L (98-107); Creatinine Clr Calc Pharmacy 68.3925; Globulin 2.4 g/dL (1.3-4.6); Glucose 286 mg/dL (65-115); Lipase 16 U/L (13-60); Osmolality Calculated 288 mOsm/kg (285-295); Potassium 4.3 mmol/L (3.5-5.1); Sodium 133 mmol/L (136-145); Total Bilirubin 0.5 mg/dL (0.15-1.2); Total Protein 6.9 g/dL (6.6-8.7)
[2024-09-04] MEDS: iohexol 350 mg/mL 500 mL Btl (per mL) IV (10:37)
[2024-09-04 10:53] LABS: Ketone (Acetest) Serum Negative (Negative)
[2024-09-04] MEDS: lidocaine 2% viscous 15 ML, aluminum-mag hydrox-simethicon 30 ML, sucralfate oral liq 1 GM PO (11:19)
[2024-09-04 11:21] LABS: Add Urine Microscopic? NO
[2024-09-04 11:24] LABS: Bilirubin Urine Negative (Negative); Blood Urine Negative (Negative); Glucose Urine UA 3+ (Normal); Ketones Urine Trace (Negative); Leukocyte Esterase Urine Negative (Negative); Nitrate Urine Negative (Negative); Protein Urine Negative (Negative); Specific Gravity, Urine 1.079 (1.005-1.030); Urine Appearance Clear (CLEAR); Urine Color Yellow (Yellow); pH Urine 5.5 (5-7)
[2024-09-04 11:25] LABS: Charge for UA Resulting for Rev
[2024-09-04 11:40] VITALS: BP 127/70; PULSE 83; O2SAT 98
[2024-09-04 11:51] VITALS: BP 127/70; PULSE 80; O2SAT 98
--- NOTE | 2024-09-04 11:55 | DCPLANNER ---
sent message to [facility] for er f/u
== END 2024-09-04 11:52 | disposition home or self-care (01) ==
PROVIDERS: Emergency Provider Physician Assistant; PCP Family Medicine Adult Medicine
DX: R10.84 Generalized abdominal pain (principal); E11.9 Type 2 diabetes mellitus without complications; D69.6 Thrombocytopenia, unspecified
CPT/HCPCS: 36415; 74177; 80053; 81003; 82009; 83690; 85025; 96374; 96375; 99285; J2270; J2405

== ENCOUNTER → 2024-12-21 10:52 | Outpatient (BNVA) | payer MEDICARE, MEDICAID, SELFPAY | PROVIDERS: PCP Family Medicine; Visit Provider Family Medicine | DX: E11.9 Type 2 diabetes mellitus without complications (principal) | CPT/HCPCS: 80048; 83036 ==